=== PATIENT | male | born 2000 | race African-American/Black ===

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

== ENCOUNTER 2023-08-02 11:40 | Emergency (ER) | payer BC, OTHER ==
--- OUTSIDE RECORDS SUMMARY | 2023-08-02 11:43 | XMS REPORT | Continuity of Care Document ---
:2000 Author Organization [facility] t Address [address] [place] [address] Care Team Providers Name Role Phone Dakota Opal FUCHS Primary Care Physician [phone] BASIL LO Attending Clinician Unavailable Estephanie Rob NP Attending Clinician Basil Lo MD Attending Clinician CAROL CLARK Attending Clinician Unavailable BUD CABRALES Attending Clinician Unavailable DARRYL PANCHAL Attending Clinician Unavailable LEIGH REYES Attending Clinician Unavailable LAB90 Attending Clinician Unavailable [facility] Attending Clinician Unavailabl e Payers Payer Name Policy Type Policy Number Effective Date Expiration Date S anoop CIG[employer] II [id number] 2015 00:00:00 [facility]LY [facility] [id number] 2022 00:00:00 [employer] 2 [id number] 2023 00:00:00 [facility] 2 [id number] 2022 00:00:00 Problems Condition Condition Condition Status Onset Resolution Last Treating Co mments Source Name Details Category Date Date Treatment Clinician Date Laceration Laceration Disease Active K elsey of dorsum of dorsum 6-09 Seyb old of right of right 00:00: - foot foot 00 Externa l Current Current Disease Active 2021-10 Roshni mild mild 2-12 Seybold episode of episode of 00:00: - major major 00 Externa depressive depressive l disorder disorder without without prior prior episode episode Class 3 Class 3 Disease Active 2021-10 Roshni severe severe 2-12 Seybold obesity obesity 00:00: - due to due to 00 Externa excess excess l calories calories without without serious serious comorbidit comorbidit y with y with body mass body mass index index (BMI) of (BMI) of 40.0 to 40.0 to 44.9 in 44.9 in adult adult Right foot Right foot Disease Active 2021-10 Ave kumari pain pain 2-12 Seybold 00:00: - 00 Externa l Prediabete Prediabete Disease Active 2021-10 K elsey s s 2-12 Seybold 00:00: - 00 Externa l Vitamin D Vitamin D Disease Active 2021-10 Félix mary deficiency deficiency 1-18 Se ybold 00:00: - 00 Externa l BMI BMI Disease Active 2021-10 Roshni 40.0-44.9, 40.0-44.9, 1-15 Se ybold adult adult 00:00: - 00 Externa l BMI (body BMI (body Disease Active Uni vers mass mass 7-25 ity of index), index), 00:00: [place] pediatric, pediatric, 00 Me dical greater greater Branch than 99% than 99% for age for age Allergies, Adverse Reactions, Alerts Allergy Allergy Status Severity Reaction(s) Onset Inactive Treating Comm ents Source Name Type Date Date Clinician NO KNOWN Drug Active Univers ALLERGIE Class ity of S [facility] Social History Social Habit Start Date Stop Date Quantity Comments Source Gender identity [facility]it y [facility] Sexual orientation Univer sity [facility] Alcohol intake 2023-04-07 2023-04-07 Lifetime Roshni Escamillala bold - 00:00:00 00:00:00 non-drinker External (finding) Tobacco use and 2022-09-13 2022-09-13 Smokeless Roshni Se ybold - exposure 00:00:00 00:00:00 tobacco non-user External History of Social 2017-10-19 2017-10-19 Univers ity of function 00:00:00 00:00:00 [facility] Sex Assigned At [birth year] Roshni ybold - 00:00:00 00:00:00 External Smoking Status Start Date Stop Date Source Never smoked tobacco Roshni Seyb old - External Medications Ordered Filled Start Stop Current Ordering Indication Dosage Frequency Signature Comments Components Source Medication Medication Date Date Medication? Clinician (SIG) Name Name NaCl 0.9% 2022- No 1000mL at 999 Uni vers (NS) IV 8 08-19 mL/hr, IV ity of infusion 00:45: 01:52 Infusion, Dave as 1,000 mL 00 :00 ONCE, 1 Medical dose, On Branch Mon06/16/23 at 1945, Routine
Bolus fluid<br&g t; Cholecalcif Yes [id number] 1{tbl} Take 1 Roshni jahaira 1-03 tablet by Seybold (Vitamin 00:00: mouth - D3) 20 MCG 00 daily Externa (800 UNIT) l oral Tablet Cholecalcif Yes [id number] 1{tbl} Take 1 Roshni jahiara 1-03 tablet by Seybold (Vitamin 00:00: mouth - D3) 20 MCG 00 daily Externa (800 UNIT) l oral Tablet Bupropion 2021-10 Yes [id number] 150mg Take 1 Roshni HCL XL 150 2-30 tablet Seybold MG OR TB24 00:00: (150 mg - 00 total) by Externa mouth l daily Bupropion 2021-10 Yes [id number] 150mg Take 1 Roshni HCL XL 150 2-30 tablet Seybold MG OR TB24 00:00: (150 mg - 00 total) by Externa mouth l daily Semaglutide 2021-10 Yes [id number] .25mg Inject Roshni (0.25 or 2-12 0.25 mg Seybold 0.5 00:00: into the - mg/dose) 2 00 skin once Exte rna mg/1.5 mL a week l SQ Solution Pen-Injecto r Cholecalcif 2021-10 Yes [id number] 1{tbl} Take 1 Roshni jahaira 2-12 tablet by Seybold (Vitamin 00:00: mouth - D3) 20 MCG 00 daily Externa (800 UNIT) l oral Tablet Semaglutide 2021-10- No [id number] .25mg Inject Roshni (0.25 or 2-12 06-09 0.25 mg Seybold 0.5 00:00: 00:00 into the - mg/dose) 2 00 :00 skin once Exte rna mg/1.5 mL a week l SQ Solution Pen-Injecto r Vitamin D, 2021-10- No [id number] 87636E Take 1 Roshni Ergocalcife 11-16 12-12 capsule Seyb old rol, 1.25 00:00: 00:00 (50,000 - MG (74235 00 :00 units Externa UT) oral total) by l Capsule mouth once a week Bupropion 2021-10 Yes [id number] 150mg Take 1 Roshni HCL XL 150 1-15 tablet Seybold MG OR TB24 00:00: (150 mg - 00 total) by Externa mouth l daily Bupropion 2021-10 Yes [id number] 150mg Take 1 Roshni HCL XL 150 1-15 tablet Seybold MG OR TB24 00:00: (150 mg - 00 total) by Externa mouth l daily No known No Univers medications [facility] Vital Signs Vital Name Observation Time Observation Value Comments Source Systolic blood 2023-06-16 23:46:00 136 mm[Hg] Univer sity [facility] Diastolic blood 2023-06-16 23:46:00 80 mm[Hg] [facility] [place] Heart rate 2023-06-16 23:46:00 93 /min [facility] Body temperature 2023-06-16 23:46:[address] [facility] Respiratory rate 2023-06-16 23:46:00 16 /min [facility] Body height 2023-06-16 23:46:00 177.8 cm [facility] Body weight 2023-06-16 23:46:00 133.539 kg [facility] BMI 2023-06-16 23:46:00 42.24 kg/m2 [facility] Oxygen saturation in 2023-06-16 23:46:00 100 /min [facility] Arterial blood by [facility] Pulse oximetry Branch Systolic blood 2023-04-07 16:44:00 128 mm[Hg] Roshni Seybold - pressure External Diastolic blood 2023-04-07 16:44:00 84 mm[Hg] Kelse y Seybold - pressure External Heart rate 2023-04-07 16:44:00 55 /min Roshni S eybold - External Body temperature 2023-04-07 16:44:00 36.89 Marce Kathy ey Seybold - External Respiratory rate 2023-04-07 16:44:00 15 /min Kathy ey Seybold - External Body height 2023-04-07 16:44:00 180.3 cm Roshni S eybold - External Body weight 2023-04-07 16:44:00 135.172 kg Roshni S eybold - External BMI 2023-04-07 16:44:00 41.56 kg/m2 Roshni S eybold - External Systolic blood 2022-10-10 19:59:00 120 mm[Hg] Roshni Seybold - pressure External Diastolic blood 2022-10-10 19:59:00 70 mm[Hg] Félixse y Seybold - pressure External Heart rate 2022-10-10 19:59:00 71 /min Roshni S eybold - External Body temperature 2022-10-10 19:59:00 36.17 Marce Kathy ey Seybold - External Respiratory rate 2022-10-10 19:59:00 16 /min Kathy ey Seybold - External Body height 2022-10-10 19:59:00 180.3 cm Roshni S eybold - External Body weight 2022-10-10 19:59:00 133.358 kg Roshni S eybold - External BMI 2022-10-10 19:59:00 41.00 kg/m2 Roshni S eybold - External Systolic blood 2022-09-13 20:35:00 129 mm[Hg] Roshni Seybold - pressure External Diastolic blood 2022-09-13 20:35:00 77 mm[Hg] Félixse y Seybold - pressure External Heart rate 2022-09-13 20:35:00 72 /min Roshni S eybold - External Body temperature 2022-09-13 20:35:00 36.17 Marce Kathy ey Seybold - External Respiratory rate 2022-09-13 20:35:00 14 /min Kathy ey Seybold - External Body height 2022-09-13 20:35:00 180.3 cm Roshni haney - External Body weight 2022-09-13 20:35:00 132.269 kg Roshni haney - External BMI 2022-09-13 20:35:00 40.67 kg/m2 Roshni haney - External Oxygen saturation in 2022-09-13 20:35:00 99 /min Roshni Joy - Arterial blood by External Pulse oximetry Procedures Procedure Date / Time Performed Performing Clinician Sour e CREATINE KINASE 2023-06-17 00:36:00 Darron [facility] MAGNESIUM 2023-06-17 00:36:00 Darron [facility] COMP. METABOLIC PANEL 2023-06-17 00:36:00 Estephanie Rob [facility] ([id number]) [facility] CBC WITH DIFF 2023-06-17 00:36:00 Darron [facility] NOTICE OF PRIVACY 2023-06-16 23:41:01 Doctor Unassigned, No Univ [facility] PRACTICES Name [facility] CONSENT/REFUSAL FOR 2023-06-16 23:40:25 Doctor Unassigned, No [facility] DIAGNOSIS AND Name [facility] TREATMENT Encounters Start End Encounter Admission Attending Care Care Encounter Source Date/Time Date/Time Type Type Clinicians Facility Department ID 2023-06-16 2023-06-16 Emergency X ABHIJEET LO ERT [id number] Univers 18:49:00 20:59:00 BASIL [facility] 2023-06-16 2023-06-16 Emergency Estephanie Rob [facility] [id number] Univers 18:49:00 20:59:00 [facility] [id number] [facility] [id number] [facility] [id number] [place] [id number] [place] 2023-05-09 2023-05-09 Outpatient ROSHNI CLARK [id number] Roshni 17:00:00 17:00:00 CAROLJONATAN Castillool jovani 2023-05-08 2023-05-08 Outpatient ROSHNI CABRALES [id number] Roshni 16:00:00 16:00:00 BUD Seybol d 2023-04-07 2023-04-07 Outpatient PREZAS, ROSHNI ASKEW [id number] Roshni 11:45:00 11:45:00 DARRYL Seybol d 2023-02-23 2023-02-23 Outpatient HUNDL, ROSHNI ASKEW [id number] Roshni 00:00:00 00:00:00 LEIGH Seybol d 2023-01-18 2023-01-18 Outpatient PREZAS, ROSHNI ASKEW [id number] Roshni 00:00:00 00:00:00 DARRYL Seybol d 2022-11-29 2022-11-29 Outpatient PREZAS, ROSHNI ASKEW [id number] Roshni 15:00:00 15:00:00 DARRYL Seybol d 2022-11-07 2022-11-07 Outpatient PREZAS, ROSHNI ASKEW [id number] Roshni 14:00:00 14:00:00 DARRYL Seybol d 2022-10-28 2022-10-28 Outpatient PREZAS, ROSHNI ASKEW [id number] Roshni 00:00:00 00:00:00 DARRYL Seybol d 2022-10-28 2022-10-28 Outpatient HUNDL, ROSHNI ASKEW [id number] Roshni 00:00:00 00:00:00 LEIGH Seybol d 2022-10-17 2022-10-17 Outpatient PREZAS, ROSHNI ASKEW [id number] Roshni 00:00:00 00:00:00 DARRYL Seybol d 2022-10-11 2022-10-11 Outpatient HUNDL, ROSHNI ASKEW [id number] Roshni 14:30:00 14:30:00 LEIGH Seybol d 2022-10-11 2022-10-11 Outpatient PREZAS, ROSHNI ASKEW [id number] Roshni 00:00:00 00:00:00 DARRYL Seybol d 2022-10-10 2022-10-10 Outpatient PREZASROSHNI [id number] Roshni 14:00:00 14:00:00 DARRYL Seybol d 2022-09-16 2022-09-16 Outpatient HUNDL, ROSHNI ASKEW [id number] Roshni 00:00:00 00:00:00 LEIGH Seybol jovani 2022-09-15 2022-09-15 Outpatient LAB90 ROSHNI ASKEW [id number] Roshni 11:35:00 11:35:00 Seybol jovani 2022-09-13 2022-09-13 Outpatient ROSHNI REYES [id number] Roshni 14:30:00 14:30:00 LEIGH hahn 2022-09-13 2022-09-13 Outpatient ROSHNI REYES [id number] Roshni 14:30:00 14:30:00 LEIGH Castillool jovani 2019-06-28 2019-06-28 Telephone Team, [facility] RONALD [id number] Univers 00:00:00 00:00:00 [facility] [id number] [facility] [id number] [place] [id number] [facility] 082 Branch Results This patient has no known results.
[2023-08-02] MEDS ORDERED: IBUPROFEN 200 MG TAB PO ONE (12:33)
--- NOTE | 2023-08-02 12:52 | ER ---
Nurse's Notes [facility] Name: Chandler Sanchez Age: 22 yrs Sex: Male : 2000 Arrival Date: 08/02/2023 Time: 11:40 Bed 12 Private MD: Diagnosis: Pain in right foot;Contusion of foot Presentation: 08/02 11:47 Chief complaint: Patient states: I've been doing a lot of working out and today when i iw got out of bed my right foot is sore and feels bruised , can't put pressure on it, my foot missed step and I put all my weight on it this morning. Coronavirus screen: At this time, the client does not indicate any symptoms associated with coronavirus-19. Ebola Screen: Patient negative for fever greater than or equal to 101.5 degrees Fahrenheit, and additional compatible Ebola Virus Disease symptoms Patient denies exposure to infectious person. Patient denies travel to an Ebola-affected area in the 21 days before illness onset. No symptoms or risks identified at this time. Initial Sepsis Screen: Does the patient meet any 2 criteria? No. Patient's initial sepsis screen is negative. Does the patient have a suspected source of infection? No. Patient's initial sepsis screen is negative. Risk Assessment: Do you want to hurt yourself or someone else? Patient reports no desire to harm self or others. Onset of symptoms was August 02, 2023. 11:47 Method Of Arrival: Ambulatory iw 11:47 Acuity: MIKY 4 iw Historical: - Allergies: 11:50 No Known Allergies; iw - Home Meds: 11:50 None [Active]; iw - PMHx: 11:50 Sickle Cell Trait; iw - Family history:: not pertinent. Screenin:08 [facility] ED Fall Risk Assessment (Adult) Score/Fall Risk Level 0 - 2 = Low Risk. Abuse iw screen: Denies threats or abuse. Denies injuries from another. Nutritional screening: No deficits noted. Tuberculosis screening: No symptoms or risk factors identified. Assessment: 12:08 General: Appears in no apparent distress. Behavior is calm, cooperative. Pain: iw Complains of pain in right foot. Neuro: Level of Consciousness is awake, alert, obeys commands, Oriented to person, place, time, situation, Moves all extremities. Full function. Cardiovascular: Patient's skin is warm and dry. Respiratory: Respiratory effort is even, unlabored, Respiratory pattern is regular. Musculoskeletal: Range of motion: limited in right ankle. Vital Signs: 11:47 BP 150 / 76; Pulse 89; Resp 16; Temp 98.2; Pulse Ox 95% on R/A; Weight 127.01 kg; iw Height 5 ft. 11 in. ; Pain 7/10; 11:47 Body Mass Index 39.05 (127.01 kg, 180.34 cm) iw 11:47 Pain Scale: Adult iw ED Course: 11:44 Patient arrived in ED. mg5 11:49 Yung Smith MD is Attending Physician. [facility] 11:49 Triage completed. iw 11:50 Arm band placed on. iw 12:08 Tori Max, RN is Primary Nurse. iw 12:09 Patient has correct armband on for positive identification. iw 12:43 Foot Right 3 View XRAY In Process Unspecified. EDMS 12:49 Tiago Rowan MD is Referral Physician. lolis Administered Medications: 12:24 Drug: Ibuprofen PO 600 mg PO once Route: PO; iw Medication: 12:08 VIS not applicable for this client. iw Outcome: 12:51 Discharge ordered by . [facility] 13:21 Patient left the ED. iw Signatures: Dispatcher [employer] EDYung Cartagena MD MD cha Williams, Irene, RN RN Julieta Sue mg5
--- NOTE | 2023-08-02 12:52 | EDPHYS ---
Physician Documentation [facility] Name: Chandler Sanchez Age: 22 yrs Sex: Male : 2000 Arrival Date: 08/02/2023 Time: 11:40 Bed 12 Private MD: ED Physician Yung Smith HPI: 08/02 11:59 This 22 yrs old Black Male presents to ER via Ambulatory with complaints of Foot Injury.lolis 11:59 The patient presents with decreased range of motion. lolis 12:45 The complaints affect the right foot, right foot. Context: resulted from a mis-step by lolis the patient, Mechanism of Injury: Unknown. Onset: The symptoms/episode began/occurred just prior to arrival, this morning. Modifying factors: The symptoms are alleviated by elevation of extremity, the symptoms are aggravated by movement. Associated signs and symptoms: The patient has no apparent associated signs or symptoms. Severity of symptoms: At their worst the symptoms were mild, moderate, in the emergency department the symptoms are unchanged. The patient has not experienced similar symptoms in the past. Historical: - Allergies: 11:50 No Known Allergies; iw - Home Meds: 11:50 None [Active]; iw - PMHx: 11:50 Sickle Cell Trait; iw - Family history:: not pertinent. ROS: 12:46 Constitutional: Negative for fever, chills, and weight loss, Eyes: Negative for injury, lolis pain, redness, and discharge, ENT: Negative for injury, pain, and discharge, Neck: Negative for injury, pain, and swelling, Cardiovascular: Negative for chest pain, palpitations, and edema, Respiratory: Negative for shortness of breath, cough, wheezing, and pleuritic chest pain, Abdomen/GI: Negative for abdominal pain, nausea, vomiting, diarrhea, and constipation, Back: Negative for injury and pain, : Negative for injury, bleeding, discharge, and swelling, Skin: Negative for injury, rash, and discoloration, Neuro: Negative for headache, weakness, numbness, tingling, and seizure, Psych: Negative for depression, anxiety, suicide ideation, homicidal ideation, and hallucinations, Allergy/Immunology: Negative for hives, rash, and allergies, Endocrine: Negative for neck swelling, polydipsia, polyuria, polyphagia, and marked weight changes, Hematologic/Lymphatic: Negative for swollen nodes, abnormal bleeding, and unusual bruising, 12:46 MS/extremity: Positive for decreased range of motion, pain, swelling, of the right foot, Exam: 12:46 Constitutional: This is a well developed, well nourished patient who is awake, alert, lolis and in no acute distress. Head/Face: Normocephalic, atraumatic. Eyes: Pupils equal round and reactive to light, extra-ocular motions intact. Lids and lashes normal. Conjunctiva and sclera are non-icteric and not injected. Cornea within normal limits. Periorbital areas with no swelling, redness, or edema. ENT: Nares patent. No nasal discharge, no septal abnormalities noted. Tympanic membranes are normal and external auditory canals are clear. Oropharynx with no redness, swelling, or masses, exudates, or evidence of obstruction, uvula midline. Mucous membranes moist. Neck: Trachea midline, no thyromegaly or masses palpated, and no cervical lymphadenopathy. Supple, full range of motion without nuchal rigidity, or vertebral point tenderness. No Meningismus. Chest/axilla: Normal chest wall appearance and motion. Nontender with no deformity. No lesions are appreciated. Cardiovascular: Regular rate and rhythm with a normal S1 and S2. No gallops, murmurs, or rubs. Normal PMI, no JVD. No pulse deficits. Respiratory: Lungs have equal breath sounds bilaterally, clear to auscultation and percussion. No rales, rhonchi or wheezes noted. No increased work of breathing, no retractions or nasal flaring. Abdomen/GI: Soft, non-tender, with normal bowel sounds. No distension or tympany. No guarding or rebound. No evidence of tenderness throughout. Back: No spinal tenderness. No costovertebral tenderness. Full range of motion. Skin: Warm, dry with normal turgor. Normal color with no rashes, no lesions, and no evidence of cellulitis. Neuro: Awake and alert, GCS 15, oriented to person, place, time, and situation. Cranial nerves II-XII grossly intact. Motor strength 5/5 in all extremities. Sensory grossly intact. Cerebellar exam normal. Normal gait. Psych: Awake, alert, with orientation to person, place and time. Behavior, mood, and affect are within normal limits. 12:46 Musculoskeletal/extremity: Extremities: grossly normal except: noted in the right foot: decreased ROM, erythema, pain, ROM: full active range of motion, full passive range of motion, Circulation is intact in all extremities. Compartment Syndrome exam of affected extremity: is normal. Weight bearing: able to fully bear weight, Tendon exam: specific tendon testing normal through active and passive range of motion DVT Exam: negative Homans' sign noted on exam, no appreciated bluish discoloration, no erythema, no increased warmth, pain, swelling, tenderness, Calves: are non-tender, have equal circumference, Vital Signs: 11:47 BP 150 / 76; Pulse 89; Resp 16; Temp 98.2; Pulse Ox 95% on R/A; Weight 127.01 kg; iw Height 5 ft. 11 in. ; Pain 05/08; 11:47 Body Mass Index 39.05 (127.01 kg, 180.34 cm) iw 11:47 Pain Scale: Adult iw MDM: 11:49 Patient medically screened. lolis 12:47 Differential diagnosis: fracture, sprain. Data reviewed: vital signs, nurses notes, [facility] radiologic studies, plain films. Consideration of Admission/Observation Escalation of care including admission/observation considered. I considered the following discharge prescriptions or medication management in the emergency department Medications were administered in the Emergency Department. See MAR. Test considered but Not performed: Labs: NO LABS , NECESSARY. Care significantly affected by the following chronic conditions: SICKLE CELL TRAIT. 08/02 11:50 Order name: Foot Right 3 View XRAY [facility] 08/02 12:44 Order name: Walking boot lolis Administered Medications: 12:24 Drug: Ibuprofen PO 600 mg PO once Route: PO; Disposition Summary: 08/02/23 12:51 Discharge Ordered Notes: Location: Home [facility] Problem: new lolis Symptoms: have improved lolis Condition: Stable lolis Diagnosis - Pain in right foot lolis - Contusion of foot lolis Followup: lolis - With: Private Physician - When: 2 - 3 days - Reason: Recheck today's complaints, Continuance of care, Re-evaluation by your physician Followup: lolis - With: Tiago Rowan MD - When: 2 - 3 days - Reason: Recheck today's complaints, Continuance of care, Re-evaluation by your physician Discharge Instructions: - Discharge Summary Sheet lolis - Musculoskeletal Pain lolis - How to Use Cold Therapy lolis - Foot Pain lolis Forms: - Medication Reconciliation Form lolis - Thank You Letter lolis - Antibiotic Education lolis - Prescription Opioid Use lolis - Patient Portal Instructions lolis - Leadership Thank You Letter lolis - Work release form iw Prescriptions: - acetaminophen-codeine 300-30 mg Oral tablet - take 2 tablet ORAL route every 6 hours; 20 tablet; Refills: 0, Product lolis Selection Permitted - Diclofenac Sodium 75 mg Oral tablet, delayed release (enteric coated) - take 1 tablet ORAL route 2 times per day; 20 tablet; Refills: 0, Product lolis Selection Permitted Signatures: Dispatcher [employer] Yung García MD MD cha Williams, Irene, RN RN iw
--- NOTE | 2023-08-02 13:05 | RAD REPORT ---
EXAM DESCRIPTION: RAD - Foot Right 3 View - 08/02/2023 12:45 pm CLINICAL HISTORY: Right foot pain FINDINGS: No fracture or dislocation is seen Mild hallux valgus deformity
[2023-08-02 13:26] VITALS: BP 150/76; TEMP 98.2; O2SAT 95
== END 2023-08-02 13:21 | disposition home or self-care (01) ==
LOC: ER 11:40
DX: S90.31XA Contusion of right foot, initial encounter (principal)
CPT/HCPCS: 99282

== ENCOUNTER 2023-08-03 20:00 | Emergency (ER) | payer BC ==
--- OUTSIDE RECORDS SUMMARY | 2023-08-03 20:03 | XMS REPORT | Continuity of Care Document ---
:2000 Author Organization [facility] t Address [address] [place] [address] Care Team Providers Name Role Phone Dakota Opal FUCHS Primary Care Physician [phone] BASIL LO Attending Clinician Unavailable Estephanie Rob NP Attending Clinician Basil Lo MD Attending Clinician CAROL CLARK Attending Clinician Unavailable BUD CABRALES Attending Clinician Unavailable DARRYL PACNHAL Attending Clinician Unavailable LEIGH REYES Attending Clinician Unavailable LAB90 Attending Clinician Unavailable Team, [facility] Attending Clinician Unavailabl e Payers Payer Name Policy Type Policy Number Effective Date Expiration Date S anoop CIG[employer] II [id number] 2015 00:00:00 [facility] [id number] 2022 00:00:00 [employer] 2 [id number] 2023 00:00:00 BS 2 [id number] 2022 00:00:00 Problems Condition Condition Condition Status [...] l Prediabete Prediabete Disease Active 2021-10 [address] s s 2-12 Seybold 00:00: - 00 Externa l Vitamin D Vitamin D Disease Active 2021-10 Félix hernandez deficiency deficiency 1-18 Se ybold 00:00: - 00 Externa l BMI BMI Disease Active 2021-10 Roshni 40.0-44.9, 40.0-44.9, 1-15 Se ybold adult adult 00:00: - 00 Externa l BMI (body BMI (body Disease Active Uni vers mass mass 7-25 ity of index), index), 00:00: [place] pediatric, pediatric, 00 Me dical greater greater [place] than 99% than 99% for age for age Allergies, Adverse Reactions, Alerts Allergy Allergy Status Severity Reaction(s) Onset Inactive Treating Comm ents Source Name Type Date Date Clinician NO KNOWN Drug Active Univers ALLERGIE Class ity of S [facility] Social History Social Habit Start Date Stop Date Quantity Comments Source Gender identity Universit y of [facility] Sexual orientation Univer sity of [facility] Alcohol intake 2023-04-07 2023-04-07 Lifetime Roshni Hernandez bold - 00:00:00 00:00:00 non-drinker External (finding) Tobacco use and 2022-09-13 2022-09-13 Smokeless Roshni Escamilla ybold - exposure 00:00:00 00:00:00 tobacco non-user External History of Social 2017-10-19 2017-10-19 Univers ity of function 00:00:00 00:00:00 [facility] Sex Assigned At [birth year] Roshni Escamilla ybold - 00:00:00 00:00:00 External Smoking Status Start Date Stop Date Source Never smoked tobacco Roshni Seyb old - External Medications Ordered Filled Start Stop Current Ordering Indication Dosage Frequency Signature Comments Components Source Medication Medication Date Date Medication? Clinician (SIG) Name Name NaCl 0.9% 2022- No 1000mL at 999 Uni vers (NS) IV 06-17 08-19 mL/hr, IV ity of infusion 00:45: 01:52 Infusion, Dave as 1,000 mL 00 :00 ONCE, 1 Medical dose, On [place] Mon06/16/23 at 1945, Routine
Bolus fluid<br&g t; Cholecalcif Yes [id number] 1{tbl} Take 1 Roshni jahaira 1-03 tablet by Seybold (Vitamin 00:00: mouth - D3) 20 MCG 00 daily Externa (800 UNIT) l oral Tablet Cholecalcif Yes [id number] 1{tbl} Take 1 Roshni jahaira 1-03 tablet by Seybold (Vitamin 00:00: mouth - D3) 20 MCG 00 daily Externa (800 UNIT) l oral Tablet Bupropion 2021-10 Yes [id number] 150mg Take 1 Roshni HCL XL 150 2-30 tablet Seybold MG OR TB24 00:00: (150 mg - 00 total) by Externa mouth l daily Bupropion 2021-10 Yes [id number] 150mg Take 1 Roshni HCL XL 150 2-30 tablet Seybold MG OR TB24 00:00: (150 mg - 00 total) by Externa mouth l daily Semaglutide 2021-10 Yes [id number] .25mg Inject Roshni (0.25 or 2-12 0.25 mg Seybold 0.5 00:00: into the - mg/dose) 2 00 skin once Exte rna mg/1.5 mL a week l SQ Solution Pen-Injecto r Cholecalcif 2021-10 Yes [id number] 1{tbl} Take 1 Roshni jahaira 2-12 tablet by Seybold (Vitamin 00:00: mouth - D3) 20 MCG 00 daily Externa (800 UNIT) l oral Tablet Semaglutide 2021-10- No [id number] .25mg Inject Roshni (0.25 or 2-12 06-09 0.25 mg Seybold 0.5 00:00: 00:00 into the - mg/dose) 2 00 :00 skin once Exte rna mg/1.5 mL a week l SQ Solution Pen-Injecto r Vitamin D, 2021-10- No [id number] 29150D Take 1 Roshni Ergocalcife 18 12-12 capsule Seyb old rol, 1.25 00:00: 00:00 (50,000 - MG (27923 00 :00 units Externa UT) oral total) by l Capsule mouth once a week Bupropion 2021-10 Yes [id number] 150mg Take 1 Roshni HCL XL 150 1-15 tablet Seybold MG OR TB24 00:00: (150 mg - 00 total) by Externa mouth l daily Bupropion 2021-10 Yes [id number] 150mg Take 1 Roshni HCL XL 150 1-15 tablet Seybold MG OR TB24 00:00: (150 mg - 00 total) by Externa mouth l daily No known No Univers medications [facility] Vital Signs Vital Name Observation Time Observation Value Comments Source Systolic blood 2023-06-16 23:46:00 136 mm[Hg] Univer sity [facility] Diastolic blood 2023-06-16 23:46:00 80 mm[Hg] [facility] Heart rate 2023-06-16 23:46:00 93 /min [facility] Body temperature 2023-06-16 23:46:[address] [facility] Respiratory rate 2023-06-16 23:46:00 16 /min [facility] Body height 2023-06-16 23:46:00 177.8 cm [facility] Body weight 2023-06-16 23:46:00 133.539 kg [facility] BMI 2023-06-16 23:46:00 42.24 kg/m2 [facility] Oxygen saturation in 2023-06-16 23:46:00 100 /min [facility] Arterial blood by [facility] Pulse oximetry Branch Systolic blood 2023-04-07 16:44:00 128 mm[Hg] Roshni Seybold - pressure External Diastolic blood 2023-04-07 16:44:00 84 mm[Hg] Félixse y Seybold - pressure External [...] Body height 2022-10-10 19:59:00 180.3 cm Roshni Villatoro eybold - External Body weight 2022-10-10 19:59:00 [...] Oxygen saturation in 2022-09-13 20:35:00 99 /min Rsohni Joy - Arterial blood by External Pulse oximetry Procedures Procedure Date / Time Performed Performing Clinician [facility] e CREATINE KINASE 2023-06-17 00:36:00 Darron [facility] MAGNESIUM 2023-06-17 00:36:00 Darron [facility] COMP. METABOLIC PANEL 2023-06-17 00:36:00 Estephanie Rob [facility] ([id number]) [facility] CBC WITH DIFF 2023-06-17 00:36:00 Darron [facility] NOTICE OF PRIVACY 2023-06-16 23:41:01 Doctor Unassigned, No [facility] PRACTICES Name [facility] CONSENT/REFUSAL FOR 2023-06-16 23:40:25 Doctor Unassigned, No [facility] DIAGNOSIS AND Name Medical [place] TREATMENT Encounters Start End Encounter Admission Attending Care Care Encounter Source Date/Time Date/Time Type Type Clinicians Facility Department ID 2023-06-16 2023-06-16 Emergency X ABHIJEET LO ERT [id number] [facility] 18:49:00 20:59:00 BASIL taylor [facility] 2023-06-16 2023-06-16 Emergency Estephanie Rob [facility] [id number] [facility] 18:49:00 20:59:00 Basil Lo [place] [id number] [facility] [id number] [facility] [id number] [place] [address] [place] 2023-05-09 2023-05-09 Outpatient ROSHNI CLARK [id number] R[place]ni 17:00:00 17:00:00 CAROLJONATAN Castillool jovani 2023-05-08 2023-05-08 Outpatient ROSHNI CABRALES [id number] [place] 16:00:00 16:00:00 BUD Seybol d 2023-04-07 2023-04-07 Outpatient PREZAS, ROSHNI ASKEW [id number] [place] 11:45:00 11:45:00 DARRYL Seybol d 2023-02-23 2023-02-23 Outpatient HUNDL, ROSHNI ASKEW [id number] [place] 00:00:00 00:00:00 LEIGH Seybol d 2023-01-18 2023-01-18 Outpatient PREZAS, ROSHNI ASKEW [id number] [place] 00:00:00 00:00:00 DARRYL Seybol d 2022-11-29 2022-11-29 Outpatient PREZAS, ROSHNI ASKEW [id number] [place] 15:00:00 15:00:00 DARRYL Seybol d 2022-11-07 2022-11-07 Outpatient PREZAS, ROSHNI ASKEW [id number] [place] 14:00:00 14:00:00 DARRYL Seybol d 2022-10-28 2022-10-28 Outpatient HUNDL, ROSHNI ASKEW [id number] [place] 00:00:00 00:00:00 LEIGH Seybol d 2022-10-28 2022-10-28 Outpatient PREZAS, ROSHNI ASKEW [id number] [place] 00:00:00 00:00:00 DARRYL Seybol d 2022-10-17 2022-10-17 Outpatient PREZAS, ROSHNI ASKEW [id number] [place] 00:00:00 00:00:00 DARRYL Seybol d 2022-10-11 2022-10-11 Outpatient HUNDL, ROSHNI ASKEW [id number] [place] 14:30:00 14:30:00 LEIGH Seybol d 2022-10-11 2022-10-11 Outpatient PREZAS, ROSHNI ASKEW [id number] [place] 00:00:00 00:00:00 DARRYL Seybol d 2022-10-10 2022-10-10 Outpatient PREZAS, ROSHNI ASKEW [id number] [place] 14:00:00 14:00:00 DARRYL Seybol d 2022-09-16 2022-09-16 Outpatient ROSHNI REYES [id number] [place] 00:00:00 00:00:00 LEIGH Seybol d 2022-09-15 2022-09-15 Outpatient LAB90 ROSHNI ASKEW [id number] [place] 11:35:00 11:35:00 Seybol d 2022-09-13 2022-09-13 Outpatient ROSHNI REYES [id number] [place] 14:30:00 14:30:00 LEIGH Castillool jovani 2022-09-13 2022-09-13 Outpatient ROSHNI REYES [id number] [place] 14:30:00 14:30:00 LEIGH Seybol jovani 2019-06-28 2019-06-28 Telephone Team, [facility] RONALD [id number] Univers 00:00:00 00:00:00 [facility] [id number] [facility] [id number] [place] [id number] [facility] 082 Branch Results This patient has no known results.
[2023-08-03] MEDS ORDERED: CYCLOBENZAPRINE 10 MG TAB ONE (20:38)
[2023-08-03] MEDS ORDERED: KETOROLAC 30 MG/ML INJ ONE (20:39)
[2023-08-03] MEDS ORDERED: TRAMADOL HCL 50 MG TAB ONE (20:39)
--- NOTE | 2023-08-03 20:45 | RAD REPORT ---
EXAM DESCRIPTION: US - Extremity Venous Uni Ltd - 08/03/2023 8:39 pm CLINICAL HISTORY: PAIN Leg swelling and edema. COMPARISON: No comparisons FINDINGS: Right lower extremity venous system was interrogated with Doppler technique. Normal flow, compressibility and augmentation was noted. There is no DVT present. IMPRESSION: No evidence of right lower extremity deep venous thrombosis.
--- NOTE | 2023-08-03 21:21 | RAD REPORT ---
EXAM DESCRIPTION: RAD - Tib Fib Right - 08/03/2023 9:09 pm CLINICAL HISTORY: Right lower leg pain COMPARISON: No comparisons FINDINGS: No bone or joint abnormality is seen.
--- NOTE | 2023-08-03 21:34 | EDPHYS ---
Physician Documentation [facility] Name: Gracie Sanchez Age: 22 yrs Sex: Male : 2000 Arrival Date: 08/03/2023 Time: 20:00 Bed 12 Private MD: ED Physician Gonzalez Arias HPI: 08/03 20:06 This 22 yrs old Black Male presents to ER via Unassigned with complaints of Foot Pain. sp4 21:32 Patient presents with worsening right foot pain which has started yesterday after he sp4 missed stepped. Patient has had an x-ray yesterday that has not revealed no fracture or dislocation. Patient was given short right Ortho boot and discharged home without crutches. Today patient states pain has worsened and at that radiates from the right heel up to the right calf. . Historical: - Allergies: 20:09 No Known Allergies; cm10 - PMHx: 20:09 Sickle Cell Trait; cm10 - Immunization history:: Adult Immunizations unknown. - Social history:: Smoking status: Patient denies any tobacco usage or history of. - Family history:: not pertinent. ROS: 22:37 Constitutional: Negative for fever, chills, and weight loss, MS/Extremity: Positive sp4 right foot and ankle pain positive pain radiation up to the right calf, positive pain with ambulation 22:37 All other systems are negative, Exam: 22:37 Constitutional: This is a well developed, well nourished patient who is awake, alert, sp4 and in no acute distress. Head/Face: Normocephalic, atraumatic. Eyes: Pupils equal round and reactive to light, extra-ocular motions intact. Lids and lashes normal. Conjunctiva and sclera are not injected. Cornea within normal limits. Periorbital areas with no swelling, redness, or edema. ENT: Nares patent. No nasal discharge, no septal abnormalities noted. Tympanic membranes are normal and external auditory canals are clear. Oropharynx with no redness, swelling, or masses, exudates, or evidence of obstruction, uvula midline. Mucous membranes moist. Neck: Trachea midline, no thyromegaly or masses palpated, and no cervical lymphadenopathy. Supple, full range of motion without nuchal rigidity, or vertebral point tenderness. Chest/axilla: Normal chest wall appearance and motion. Nontender with no deformity. No lesions are appreciated. Cardiovascular: Regular rate and rhythm with a normal S1 and S2. No gallops, murmurs, or rubs. Normal PMI, no JVD. No pulse deficits. Respiratory: Lungs have equal breath sounds bilaterally, clear to auscultation and percussion. No rales, rhonchi or wheezes noted. No increased work of breathing, no retractions or nasal flaring. Abdomen/GI: Soft, non-tender, with normal bowel sounds. No distension or tympany. No guarding or rebound. No evidence of tenderness throughout. Back: No spinal tenderness. No costovertebral tenderness. Skin: Warm, dry with normal turgor. Normal color with no rashes, no lesions, and no evidence of cellulitis. MS/ Extremity: Pulses equal, no cyanosis. Neurovascular intact. Full, normal range of motion. Intact pulses right lower extremity, there is tenderness medial aspect the right ankle and right plantar aspect of the right foot, there is also tenderness in the right calf without deformity no sign of compartment syndrome. Intact Achilles tendon, positive limp with ambulation. Neuro: Awake and alert, GCS 15, oriented to person, place, time, and situation. Cranial nerves II-XII grossly intact. Motor strength 5/5 in all extremities. Sensory grossly intact. Psych: Awake, alert, with orientation to person, place and time. Behavior, mood, and affect are within normal limits Vital Signs: 20:08 BP 114 / 84; Pulse 69; Resp 18 S; Temp 99.1(O); Pulse Ox 96% on R/A; Weight 127.01 kg; cm10 Height 5 ft. 11 in. ; Pain 7/10; 20:08 Body Mass Index 39.05 (127.01 kg, 180.34 cm) cm10 20:08 Pain Scale: Adult cm10 Procedures: 22:37 Splinting: Splint applied to right calf, right Achilles, right heel and medial aspect sp4 of right foot using Ortho 3D boot, Right lower extremity Ortho boot tall version up to the right knee. applied by myself. Examined by me, post splint application: neurovascular intact, 2+ distal pulses palpable, brisk capillary refill noted, Patient tolerated well, Crutches were provided to limit weightbearing. MDM: 20:26 Patient medically screened. lolis 22:37 Differential diagnosis: fracture, sprain, foreign body, penetrating trauma, arthritis, sp4 gout, cellulitis. Data reviewed: vital signs, nurses notes, radiologic studies, plain films, ultrasound. Consideration of Admission/Observation Escalation of care including admission/observation considered. 22:42 ED course: X ray - RADIOLOGYSERVICES REPORT Name: GRACIE CASTRO Acct sp4 Number: [id number] :2000 Age:22 Sex:M Ord Phys: Gonzalez Arias MD Status: REG ER ER Exam Date: 08/03/23 EXAM DESCRIPTION: RAD - Tib Fib Right - 08/03/2023 9:09 pm CLINICAL HISTORY: Right lower leg pain COMPARISON: No comparisons FINDINGS: No bone or joint abnormality is seen. . ED course: US - EXAM DESCRIPTION: US - Extremity Venous Uni Ltd - 08/03/2023 8:39 pm CLINICAL HISTORY: PAIN Leg swelling and edema. COMPARISON: No comparisons FINDINGS: Right lower extremity venous system was interrogated with Doppler technique. Normal flow, compressibility and augmentation was noted. There is no DVT present. IMPRESSION: No evidence of right lower extremity deep venous thrombosis.. 08/03 20:14 Order name: US Extremity Venous Unilateral Ltd; Complete Time: 21:15 ha1 08/03 20:21 Order name: Tib Fib Right XRAY; Complete Time: 21:26 sp4 Administered Medications: 20:31 Drug: Ketorolac IM 60 mg IM once Route: IM; Site: left deltoid; bp 21:43 Follow up: Response: No adverse reaction; Pain is decreased ap3 20:31 Drug: Cyclobenzaprine PO 10 mg PO once Route: PO; bp 21:43 Follow up: Response: No adverse reaction ap3 20:31 Drug: traMADol PO 100 mg PO once Route: PO; bp 21:43 Follow up: Response: No adverse reaction ap3 Disposition Summary: 08/03/23 21:34 Discharge Ordered Problem: new sp4 Symptoms: have improved sp4 Condition: Stable sp4 Diagnosis - Other sprain of right foot sp4 - Right foot and ankle medial ligamentous sprain sp4 Followup: sp4 - With: Tiago Rowan MD - When: 10 - 14 days - Reason: Recheck today's complaints Discharge Instructions: - Discharge Summary Sheet sp4 - Ankle Sprain sp4 Forms: - Patient Portal Instructions sp4 Prescriptions: - Cyclobenzaprine 10 mg Oral Tablet - take 1 tablet ORAL route every 8 hours As needed; 30 tablet; Refills: 0, sp4 Product Selection Permitted Signatures: Dispatcher [employer] EDYung Cartagena MD MD cha Peltier, Brian RN RN bp Gonzalez Arias MD MD sp4 Lena Knight RN RN cm10 Ana Magallon RN ap3
--- NOTE | 2023-08-03 21:34 | ER ---
Nurse's Notes [facility] Name: Chandler Sanchez Age: 22 yrs Sex: Male : 2000 Arrival Date: 08/03/2023 Time: 20:00 Bed 12 Private MD: Diagnosis: Other sprain of right foot;Right foot and ankle medial ligamentous sprain Presentation: 08/03 20:08 Chief complaint: Patient states: increased pain to right foot. Pt was seen here cm10 yesterday and placed in a walking boot. Pt states that he was told to return for increasing pain. Coronavirus screen: Vaccine status: Patient reports receiving the 2nd dose of the covid vaccine. Client denies travel out of the [place] in the last 14 days. Ebola Screen: Patient denies travel to an Ebola-affected area in the 21 days before illness onset. No symptoms or risks identified at this time. Initial Sepsis Screen: Does the patient meet any 2 criteria? No. Patient's initial sepsis screen is negative. Does the patient have a suspected source of infection? No. Patient's initial sepsis screen is negative. Risk Assessment: Do you want to hurt yourself or someone else? Patient reports no desire to harm self or others. Onset of symptoms was August 03, 2023. 20:08 Method Of Arrival: Ambulatory cm10 20:08 Acuity: MIKY 4 cm10 Triage Assessment: 20:10 General: Appears in no apparent distress. comfortable, Behavior is calm, cooperative. cm10 Pain: Complains of pain in right foot Pain radiates to right leg Pain currently is 7 out of 10 on a pain scale. Neuro: No deficits noted. Level of Consciousness is awake, alert, obeys commands, Oriented to person, place, time, situation. Respiratory: No deficits noted. Airway is patent Respiratory effort is even, unlabored, Respiratory pattern is regular, symmetrical. Historical: - Allergies: 20:09 No Known Allergies; cm10 - PMHx: 20:09 Sickle Cell Trait; cm10 - Immunization history:: Adult Immunizations unknown. - Social history:: Smoking status: Patient denies any tobacco usage or history of. - Family history:: not pertinent. Screenin:10 [facility] ED Fall Risk Assessment (Adult) History of falling in the last 3 months, cm10 including since admission Yes- single mechanical fall (1 pt) Confusion or Disorientation No (0 pts) Intoxicated or Sedated No (0 pts) Impaired Gait Yes (1 pt) Mobility Assist Device Used No (0 pt) Altered Elimination No (0 pt) Score/Fall Risk Level 0 - 2 = Low Risk Oriented to surroundings, Maintained a safe environment, Hourly rounding (assess needs \T\ fall precautionary measures) done. Abuse screen: Denies threats or abuse. Denies injuries from another. Nutritional screening: No deficits noted. Tuberculosis screening: No symptoms or risk factors identified. Assessment: 21:43 Reassessment: Patient and/or family updated on plan of care and expected duration. Pain ap3 level reassessed. Patient is alert, oriented x 3, equal unlabored respirations, skin warm/dry/pink. Vital Signs: 20:08 BP 114 / 84; Pulse 69; Resp 18 S; Temp 99.1(O); Pulse Ox 96% on R/A; Weight 127.01 kg; cm10 Height 5 ft. 11 in. ; Pain 7/10; 20:08 Body Mass Index 39.05 (127.01 kg, 180.34 cm) cm10 20:08 Pain Scale: Adult cm10 ED Course: 20:01 Patient arrived in ED. [email or web address] 20:06 Gonzalez Arias MD is Attending Physician. sp4 20:09 Triage completed. cm10 20:09 Arm band placed on Patient placed in an exam room, on a stretcher. cm10 20:10 Patient has correct armband on for positive identification. Bed in low position. Call cm10 light in reach. Provided Education on: ER process and procedures. . 20:40 US Extremity Venous Unilateral Ltd In Process Unspecified. EDMS 21:11 Tib Fib Right XRAY In Process Unspecified. EDMS 21:33 Tiago Rowan MD is Referral Physician. sp4 21:43 Ana Magallon RN is Primary Nurse. ap3 21:43 No provider procedures requiring assistance completed. Patient did not have IV access ap3 during this emergency room visit. Administered Medications: 20:31 Drug: Ketorolac IM 60 mg IM once Route: IM; Site: left deltoid; bp 21:43 Follow up: Response: No adverse reaction; Pain is decreased ap3 20:31 Drug: Cyclobenzaprine PO 10 mg PO once Route: PO; bp 21:43 Follow up: Response: No adverse reaction ap3 20:31 Drug: traMADol PO 100 mg PO once Route: PO; bp 21:43 Follow up: Response: No adverse reaction ap3 Medication: 20:10 VIS not applicable for this client. cm10 Outcome: 21:34 Discharge ordered by . sp4 21:44 Discharged to home ambulatory, ap3 21:44 Condition: good 21:44 Discharge instructions given to patient, Instructed on discharge instructions, follow up and referral plans. medication usage, Demonstrated understanding of instructions, follow-up care, medications, Prescriptions given X 1, 21:44 Patient left the ED. ap3 Signatures: Dispatcher [employer] EDMS Benedict Haynes RN RN Ana Castellano RN RN ap3 Alida Clarke Sergey, MD MD sp4 Lena Knight RN RN cm10
[2023-08-03 22:34] VITALS: BP 114/84; TEMP 99.1; O2SAT 96
== END 2023-08-03 21:44 | disposition home or self-care (01) ==
LOC: ER 20:00
DX: S93.691A Other sprain of right foot, initial encounter (principal); S93.491A Sprain of other ligament of right ankle, initial encounter
CPT/HCPCS: 93971; 96372; 99284